=== PATIENT | female | born 1960 | race Caucasian/White ===

== ENCOUNTER 2016-10-23 00:36 | Emergency (ER) | payer MEDICARE, MEDICAID, OTHER ==
[~2016-10-23] VITALS: Ht 152.4 cm; Wt 72.7 kg
[~2016-10-23 00:36] MED LIST: FERRF325 PO; Levothyroxine Sodium PO; SYNT100T PO
[2016-10-23 00:37] VITALS: BP 127/59; PULSE 61; RESP 14; TEMP 98.2; O2SAT 100
[2016-10-23] MEDS ORDERED: SODIUM CHLOR 0.9% 1000 ML INJ 1,000 ML IV SCH (01:01)
[2016-10-23] MEDS ORDERED: SODIUM CHLORIDE 0.9% FLUSH 10 ML FLUSH IVF PRN (01:15)
[2016-10-23 01:31] LABS: AUTOMATED NEUTROPHIL # 7.7 TH/MM3 (1.8-7.7); BASOPHIL # 0.1 TH/MM3 (0-0.2); BASOPHIL % 0.7 % (0.0-2.0); EOSINOPHIL # 0.4 TH/MM3 (0-0.4); EOSINOPHIL % 4.1 % (0.0-4.0); HEMATOCRIT 35.9 % (35.0-46.0); LYMPH % 14.5 % (9.0-44.0); LYMPHOCYTE # 1.5 TH/MM3 (1.0-4.8); MEAN CELL VOLUME 72.6 FL (80.0-100.0); MEAN CORPUSCULAR HEMOGLOBIN 23.2 PG (27.0-34.0); MEAN CORPUSCULAR HGB CONC 31.9 % (32.0-36.0); MONO % 7.8 % (0.0-8.0); NEUT % 72.9 % (16.0-70.0); PLATELET COUNT 311 TH/MM3 (150-450); RED BLOOD COUNT 4.95 MIL/MM3 (4.00-5.30); RED CELL DISTRIBUTION WIDTH 16.6 % (11.6-17.2); WHITE BLOOD COUNT 10.6 TH/MM3 (4.0-11.0)
[2016-10-23] MEDS ORDERED: CELE200C PO (01:32)
[2016-10-23] MEDS ORDERED: FERR1TAB58 PO (01:32)
[2016-10-23 01:37] LABS: HEMO FLAGS AUTO DIFF
[2016-10-23 01:49] LABS: PROTHROMBIN TIME - PATIENT 11.2 SEC (9.8-11.6)
--- NOTE | 2016-10-23 01:54 | RADRPT ---
EXAM DATE/TIME: 10/23/2016 01:42 [place] COMPARISON: Report only CT ABDOMEN & PELVIS W/O CONTRAST, January 04, 2012, 20:01. INDICATIONS : Cough. MEDICAL HISTORY : Cerebral palsy. SURGICAL HISTORY : None. ENCOUNTER: Initial ACUITY: 1 day PAIN SCORE: 0/10 LOCATION: Bilateral chest FINDINGS: A single view of the chest demonstrates the lungs to be symmetrically aerated without evidence of mas s, infiltrate or effusion. The cardiomediastinal contours are unremarkable. Osseous structures are intact. Hiatal hernia noted, has been described previously. CONCLUSION: No evidence of acute cardiopulmonary disease. Large chronic hiatal hernia. Ren Ravi MD on October 23, 2016 at 1:51 Board Certified Radiologist. This report was verified electronically.
[2016-10-23 01:59] LABS: ALKALINE PHOSPHATASE 88 U/L (45-117); OVALOCYTES 1+ (NORMAL); SCAN/DIFF AUTO DIFF CONFIRMED; TOTAL BILIRUBIN ADULT 0.3 MG/DL (0.2-1.0)
--- NOTE | 2016-10-23 01:59 | PD ---
HPI Chief Complaint: General Weakness Time Seen by Provider: 00:55 Travel History International Travel<30 days: No Contact w/Intl Traveler<30days: No Traveled to known affect area: No History of Present Illness HPI 56-year-old female came to the emergency room with history of generalized weakness for past 1 week. Patient says that her daughter came to visit her today and said that her color looked cifuentes. Patient has history of anemia and has required blood transfusion in the past. He is concerned if her hemoglobin was low making her feel this way. Patient has history of cerebral palsy. She is otherwise functional. Her vital signs were stable. No history of nausea vomiting. No history of fever or chills. No history of chest pain. PFSH Past Medical History Narrative Medical List of her past medical, surgical, social and family history as reviewed from the nursing note. Cancer: No Cardiovascular Problems: No Cerebral Palsy: Yes Diminished Hearing: No Endocrine: No Gastrointestinal Disorders: No Genitourinary: No Immune Disorder: No Implanted Vascular Access Dvce: No Medical other: Yes (CHRONIC ANEMIA ) Musculoskeletal: Yes (LEFT SIDE WEAKNESS) Neurologic: Yes (CEREBRAL PALSY) Psychiatric: No Reproductive: No Respiratory: No Immunizations Current: Yes Seizures: Yes ( A CHILD) Thyroid Disease: Yes (HYPOTHYROIDISM) Tetanus Vaccination: Unknown ?: Not Menopausal: Yes : 1 Para: 1 Past Surgical History Abdominal Surgery: Yes (CHOLECYSTECTOMY) Section: Yes Cholecystectomy: Yes Eye Surgery: Yes (BL "LAZY EYE" SURGERY) Gynecologic Surgery: Yes (C SECTION) Tonsillectomy: Yes Other Surgery: Yes Social History Alcohol Use: Yes (2-3 TIMES PER YEAR) Tobacco Use: No Substance Use: No Allergies-Medications (Allergen,Severity, Reaction): Coded Allergies: Valium (Verified Allergy, Intermediate, SEIZURES, 10/23/16) Comments List of her allergies reviewed from the nursing note. Reported Meds & Prescriptions Reported Meds & Active Scripts Active Macrobid (Nitrofurantoin Monoh/Nitrofur Macro) 100 Mg Cap 100 Mg PO BID 10 Days [Levothyroxine Sodium] 112 MCG Tab 112 Mcg PO DAILY@0600 Reported Iron (Ferrous Sulfate) 50 Mg Tab 65 Mg PO QID Celebrex (Celecoxib) 200 Mg Cap 200 Mg PO BID Narrative Medication List of her home medications reviewed from the nursing note. Review of Systems Except as stated in HPI: all other systems reviewed are Neg Physical Exam Narrative GENERAL: Awake, alert, moderate distress, cerebral palsy SKIN: Focused skin assessment warm/dry. HEAD: Atraumatic. Normocephalic. EYES: Pupils equal and round. No scleral icterus. No injection or drainage. ENT: No nasal bleeding or discharge. Dry mucous membrane NECK: Trachea midline. No JVD. CARDIOVASCULAR: Regular rate and rhythm. No murmur appreciated. RESPIRATORY: No accessory muscle use. Clear to auscultation. Breath sounds equal bilaterally. GASTROINTESTINAL: Abdomen soft, non-tender, nondistended. Hepatic and splenic margins not palpable. MUSCULOSKELETAL: No obvious deformities. No clubbing. No cyanosis. No edema. NEUROLOGICAL: Awake and alert. No obvious cranial nerve deficits. Cerebral palsy. Normal speech. PSYCHIATRIC: Appropriate mood and affect; insight and judgment normal. Data Data Last Documented VS Vital Signs Date Time Temp Pulse Resp B/P Pulse Ox O2 Delivery O2 Flow Rate FiO2 10/23/16 05:38 76 16 133/60 99 10/23/16 00:37 98.2 Orders Complete Blood Count With Diff (10/23/16 01:01) Comprehensive Metabolic Panel (10/23/16 01:01) Prothrombin Time / Inr (Pt) (10/23/16 01:01) Urinalysis - C+S If Indicated (10/23/16 01:01) Type And Screen (10/23/16 01:01) Ecg Monitoring (10/23/16 01:01) Iv Access Insert/Monitor (10/23/16 01:01) Oximetry (10/23/16 01:01) Sodium Chlor 0.9% 1000 Ml Inj (Ns 1000 M (10/23/16 01:01) Sodium Chloride 0.9% Flush (Ns Flush) (10/23/16 01:15) Chest, Single Ap (10/23/16 ) Electrocardiogram (10/23/16 ) Thyroid Stimulating Hormone (10/23/16 02:04) Urine Culture (10/23/16 03:40) Nitrofurantoin Monohyd Macrocr (Macrobid (10/23/16 04:45) Labs Laboratory Tests Test 10/23/16 10/23/16 01:06 03:40 White Blood Count 10.6 TH/MM3 Red Blood Count 4.95 MIL/MM3 Hemoglobin 11.5 GM/DL Hematocrit 35.9 % Mean Corpuscular Volume 72.6 FL Mean Corpuscular Hemoglobin 23.2 PG Mean Corpuscular Hemoglobin 31.9 % Concent Red Cell Distribution Width 16.6 % Platelet Count 311 TH/MM3 Mean Platelet Volume 9.2 FL Neutrophils (%) (Auto) 72.9 % Lymphocytes (%) (Auto) 14.5 % Monocytes (%) (Auto) 7.8 % Eosinophils (%) (Auto) 4.1 % Basophils (%) (Auto) 0.7 % Neutrophils # (Auto) 7.7 TH/MM3 Lymphocytes # (Auto) 1.5 TH/MM3 Monocytes # (Auto) 0.8 TH/MM3 Eosinophils # (Auto) 0.4 TH/MM3 Basophils # (Auto) 0.1 TH/MM3 CBC Comment AUTO DIFF Differential Comment AUTO DIFF CONFIRMED Ovalocytes 1+ Prothrombin Time 11.2 SEC Prothromb Time International 1.0 RATIO Ratio Sodium Level 140 MEQ/L Potassium Level 4.3 MEQ/L Chloride Level 105 MEQ/L Carbon Dioxide Level 28.0 MEQ/L Anion Gap 7 MEQ/L Blood Urea Nitrogen 14 MG/DL Creatinine 0.45 MG/DL Estimat Glomerular Filtration 143 ML/MIN Rate Random Glucose 87 MG/DL Calcium Level 8.5 MG/DL Total Bilirubin 0.3 MG/DL Aspartate Amino Transf 28 U/L (AST/SGOT) Alanine Aminotransferase 19 U/L (ALT/SGPT) Alkaline Phosphatase 88 U/L Total Protein 7.1 GM/DL Albumin 2.8 GM/DL Thyroid Stimulating Hormone 0.040 uIU/ML 3rd Gen Blood Type A POSITIVE Antibody Screen NEGATIVE Urine Color DARK-BROWN Urine Turbidity CLOUDY Urine pH 5.5 Urine Specific [place] 1.023 Urine Protein 30 mg/dL Urine Glucose (UA) NEG mg/dL Urine Ketones 10 mg/dL Urine Occult Blood MOD Urine Nitrite POS Urine Bilirubin NEG Urine Urobilinogen LESS THAN 2.0 MG/DL Urine Leukocyte Esterase LARGE Urine RBC 57 /hpf Urine WBC /hpf Urine Squamous Epithelial 17 /hpf Cells Urine Amorphous Sediment RARE Urine Bacteria MANY /hpf Urine Mucus MANY /lpf Microscopic Urinalysis Comment CULTURE INDICATED MDM Medical Decision Making Medical Screen Exam Complete: Yes Emergency Medical Condition: Yes Medical Record Reviewed: Yes Interpretation(s) Twelve-lead EKG was reviewed by me. Normal sinus rhythm, normal axis, motion artifact, tachycardia, diffuse T-wave inversion. Heart rate of 103 bpm. Differential Diagnosis Anemia, UTI, electrolyte abnormality Narrative Course 2:02 AM CBC is back and her hemoglobin looks good. Chemistry still pending. Awaiting for UA. Patient is getting 1 L of IV fluid bolus. 3:21 AM blood test results of back and within normal limit except for her TSH which is extremely low. I've asked the patient to not take her Synthroid for a week and then have a primary care repeat her TSH. I will discharge her home. Procedures EKG Prior to Arrival: No Diagnosis Primary Impression: Hyperthyroidism Additional Impressions: Generalized weakness Dehydration Referrals: Primary Care Physician 3 days Additional Instructions: Please return to the ER if the condition worsens or any other new concerns. Otherwise follow-up with your primary care in couple of days. Do not take his Synthroid for 1 week. Have your primary care and repeat the thyroid level and should manage it from there on. Med/Other Pt SpecificInfo: Prescription(s) given Scripts Nitrofurantoin Monohydrate Macrocrystals (Macrobid)100 Mg [id number] Mg PO BID 10 Days Ref 0 Prov:Mary Daniel MD 10/23/16 Disposition: DISCHARGE HOME Condition: Stable Mary Daniel MD Oct 23, 2016 01:59
[2016-10-23 02:20] LABS: ALT (GPT) 19 U/L (10-53); ANION GAP 7 MEQ/L (5-15); AST (GOT) 28 U/L (15-37); BLOOD UREA NITROGEN 14 MG/DL (7-18); CHLORIDE 105 MEQ/L (98-107); GLOMERULAR FILTRATION RATE 143 ML/MIN (>89); POTASSIUM 4.3 MEQ/L (3.5-5.1); SODIUM (NA) 140 MEQ/L (136-145)
[2016-10-23 04:14] LABS: BACTERIA, URINE MANY /hpf; BLOOD, URINE MOD (NEG); COMMENT (UR) CULTURE INDICATED; CULTURE IF INDICATED CULTURE INDICATED; GLUCOSE,URINE NEG (NEG); KETONE, URINE 10 mg/dL (NEG); MUCUS URINE MANY /lpf (OCC); NITRITE,URINE POS (NEG); PH, URINE 5.5 (5.0-8.5); SQUAMOUS EPITHELIAL CELL URINE 17 /hpf (0-5); URINE COLOR DARK-BROWN (YELLW/STRAW)
[2016-10-23] MEDS ORDERED: MACR100C2 PO (04:43)
[2016-10-23] MEDS ORDERED: NITROFURANTOIN MONOHYD MACROCR 100 MG CAP PO ONE (04:45)
[2016-10-23 05:38] VITALS: BP 133/60
--- NOTE | 2016-10-23 07:42 | EKG ---
Date Performed: 10/23/2016 Time Performed: 01:47:47 PTAGE: 56 years EKG: BASELINE ARTIFACT PRESENT. SINUS TACHYCARDIA WITH OCCASIONAL SUPRAVENTRICULAR PREMATURE COM PLEXES POSSIBLE RIGHT VENTRICULAR CONDUCTION DELAY Nonspecific ST-T wave changes ABNORMAL ECG COMPARE D TO PRIOR ELECTROCARDIOGRAM, Possible RIGHT ventricular conduction delay is present. NO PREVIOUS TRACING DOCTOR: Yousif Feldman Interpretating Date/Time 10/23/2016 07:41:39
== END 2016-10-23 05:39 | disposition home or self-care (01) ==
LOC: NEPC 00:36
DX: E05.90 Thyrotoxicosis, unspecified without thyrotoxic crisis or storm (principal); E86.0 Dehydration; R53.1 Weakness; G80.9 Cerebral palsy, unspecified; D64.9 Anemia, unspecified; R94.31 Abnormal electrocardiogram [ECG] [EKG]
CPT/HCPCS: 71010; 80053; 81001; 84443; 85025; 85610; 86850; 86900; 86901; 87086; 93005; 96360; 99285; J7030

== ENCOUNTER 2016-11-30 17:43 | Inpatient (IN) | payer MEDICARE, MEDICAID ==
[2016-11-30] VITALS (7 sets, daily range): BP systolic 100–122; BP diastolic 61–78; PULSE 87–115; RESP 18–20; TEMP 96.7–99; O2SAT 95–98
[~2016-11-30] VITALS: Ht 152.4 cm; Wt 78.0 kg
[~2016-11-30 17:43] MED LIST changes: +CELE200C PO; +FERR1TAB58 PO; -FERRF325 PO; +MACR100C2 PO; -SYNT100T PO
[2016-11-30] MEDS ORDERED: PIPERACIL-TAZO 4.5 GM PREMIX 100 ML IV STA (18:02)
[2016-11-30] MEDS ORDERED: VANCOMYCIN INJ 1,100 MG in SODIUM CHLOR 0.9% 250 ML INJ 250 ML IV STA (18:02)
--- NOTE | 2016-11-30 18:09 | PD ---
HPI Chief Complaint: pressure ulcer buttock Time Seen by Provider: 17:53 Travel History International Travel<30 days: No Contact w/Intl Traveler<30days: No Traveled to known affect area: No History of Present Illness HPI This 56-year-old female is complaining of a pressure ulcer on her buttock. She has a history of cerebral palsy and is in a wheelchair. She lives by herself in a handicap enabled house. She normally sleeps but it has been broken. She has had 2 stay in her other wheelchair and fell doing this has developed redness and pain in the buttock. She had a previous pressure ulcer about 2 years ago. She also has a history of hypothyroidism. She said she had some chills last night. PFSH Past Medical History Cancer: No Cardiovascular Problems: No Cerebral Palsy: Yes Diminished Hearing: No Endocrine: No Gastrointestinal Disorders: No Genitourinary: No Immune Disorder: No Implanted Vascular Access Dvce: No Musculoskeletal: Yes (LEFT SIDE WEAKNESS) Neurologic: Yes (CEREBRAL PALSY) Psychiatric: No Reproductive: No Respiratory: No Immunizations Current: Yes Seizures: Yes ( A CHILD) Thyroid Disease: Yes (HYPOTHYROIDISM) Menopausal: Yes : 1 Para: 1 Past Surgical History Abdominal Surgery: Yes (CHOLECYSTECTOMY) Section: Yes Cholecystectomy: Yes Eye Surgery: Yes (BL "LAZY EYE" SURGERY) Gynecologic Surgery: Yes (C SECTION) Tonsillectomy: Yes Other Surgery: Yes Social History Alcohol Use: Yes (2-3 TIMES PER YEAR) Tobacco Use: No Substance Use: No Allergies-Medications (Allergen,Severity, Reaction): Coded Allergies: Valium (Verified Adverse Reaction, Severe, Seizures , 11/30/16) Reported Meds & Prescriptions Reported Meds & Active Scripts Active Reported Iron (Ferrous Sulfate) 90 Mg Tab 130 Mg PO DAILY Celebrex (Celecoxib) 200 Mg Cap 200 Mg PO BID PRN Synthroid (Levothyroxine Sodium) 75 Mcg Tab 75 Mcg PO DAILY Review of Systems General / Constitutional: Positive: Chills Eyes: No: Diploplia HENT: No: Headaches, Sore Throat Cardiovascular: No: Chest Pain or Discomfort, Palpitations Respiratory: No: Cough, Shortness of Breath Gastrointestinal: No: Vomiting, Diarrhea Genitourinary: No: Urgency Skin: Positive Rash Neurologic: Positive: Weakness, Focal Abnormalities Hematologic/Lymphatic: No: Easy Bruising Physical Exam Narrative GENERAL: Well-developed female. Hygiene is poor. There is stool over the buttocks. There were some cockroaches noted in her bedding. SKIN: Focused skin assessment warm/dry. There is erythema of the right buttock with ulceration of the skin. There is stool in the gluteal cleft. There is also an area of erythema on the left buttock HEAD: Atraumatic. Normocephalic. EYES: Pupils equal and round. No scleral icterus. No injection or drainage. ENT: No nasal bleeding or discharge. Mucous membranes pink and moist. NECK: Trachea midline. No JVD. CARDIOVASCULAR: Regular rate and rhythm. No murmur appreciated. RESPIRATORY: No accessory muscle use. Clear to auscultation. Breath sounds equal bilaterally. GASTROINTESTINAL: Abdomen soft, non-tender, nondistended. Hepatic and splenic margins not palpable. MUSCULOSKELETAL: No obvious deformities. No clubbing. No cyanosis. No edema. NEUROLOGICAL: Awake and alert. No obvious cranial nerve deficits. There is left -sided weakness PSYCHIATRIC: Appropriate mood and affect; insight and judgment normal. Data Data Last Documented VS Vital Signs Date Time Temp Pulse Resp B/P Pulse Ox O2 Delivery O2 Flow Rate FiO2 11/30/16 19:23 114 20 118/73 98 11/30/16 18:50 Room Air 11/30/16 18:15 99.0 Orders Complete Blood Count With Diff (11/30/16 18:02) Comprehensive Metabolic Panel (11/30/16 18:02) Prothrombin Time / Inr (Pt) (11/30/16 18:02) Act Partial Throm Time (Ptt) (11/30/16 18:02) Lactic Acid Sepsis Protocol (11/30/16 18:02) Urinalysis - C+S If Indicated (11/30/16 18:02) Blood Culture (11/30/16 18:02) Wound Culture And Gram Stain (11/30/16 18:02) Blood Glucose (11/30/16 18:02) Ecg Monitoring (11/30/16 18:02) Iv Access Insert/Monitor (11/30/16 18:02) Oximetry (11/30/16 18:02) Piperacil-Tazo 4.5 Gm Premix (Zosyn 4.5 (11/30/16 18:02) Vancomycin Inj (Vancomycin Inj) (11/30/16 18:02) Sodium Chlor 0.9% 1000 Ml Inj (Ns 1000 M (11/30/16 19:00) Thyroid Stimulating Hormone (11/30/16 18:40) Labs Laboratory Tests Test 11/30/16 18:40 White Blood Count 10.8 TH/MM3 Red Blood Count 4.59 MIL/MM3 Hemoglobin 10.1 GM/DL Hematocrit 31.4 % Mean Corpuscular Volume 68.5 FL Mean Corpuscular Hemoglobin 22.0 PG Mean Corpuscular Hemoglobin 32.0 % Concent Red Cell Distribution Width 15.2 % Platelet Count 460 TH/MM3 Mean Platelet Volume 7.8 FL Neutrophils (%) (Auto) 74.9 % Lymphocytes (%) (Auto) 14.8 % Monocytes (%) (Auto) 5.9 % Eosinophils (%) (Auto) 4.0 % Basophils (%) (Auto) 0.4 % Neutrophils # (Auto) 8.1 TH/MM3 Lymphocytes # (Auto) 1.6 TH/MM3 Monocytes # (Auto) 0.6 TH/MM3 Eosinophils # (Auto) 0.4 TH/MM3 Basophils # (Auto) 0.0 TH/MM3 CBC Comment AUTO DIFF Differential Comment AUTO DIFF CONFIRMED Platelet Estimate HIGH Prothrombin Time 11.0 SEC Prothromb Time International 1.0 RATIO Ratio Activated Partial 29.0 SEC Thromboplast Time Sodium Level 142 MEQ/L Potassium Level 3.8 MEQ/L Chloride Level 109 MEQ/L Carbon Dioxide Level 27.4 MEQ/L Anion Gap 6 MEQ/L Blood Urea Nitrogen 13 MG/DL Creatinine 0.44 MG/DL Estimat Glomerular Filtration 147 ML/MIN Rate Random Glucose 111 MG/DL Lactic Acid Level 0.9 mmol/L Calcium Level 8.2 MG/DL Total Bilirubin 0.2 MG/DL Aspartate Amino Transf 10 U/L (AST/SGOT) Alanine Aminotransferase 13 U/L (ALT/SGPT) Alkaline Phosphatase 78 U/L Total Protein 7.1 GM/DL Albumin 2.4 GM/DL Thyroid Stimulating Hormone 6.780 uIU/ML 3rd Gen [facility] Medical Decision Making Medical Screen Exam Complete: Yes Emergency Medical Condition: Yes Medical Record Reviewed: Yes Differential Diagnosis Differential includes cellulitis, pressure sore, decubitus ulcer Narrative Course Patient does have a significant area of cellulitis. She is not able to care for this area and I don't think she is a candidate for outpatient treatment. She has not been able to keep this area clean and fact there is stool around the area of cellulitis. Diagnosis Primary Impression: Cellulitis of right buttock Additional Impression: Cellulitis of left buttock Dev Salgado MD Nov 30, 2016 18:09
[2016-11-30] MEDS ORDERED: LEVO.075 PO (18:18)
[2016-11-30] MEDS ORDERED: IRON18TA PO (18:18)
[2016-11-30] MEDS ORDERED: CELE200C PO (18:18)
[2016-11-30 18:47] LABS: AUTOMATED NEUTROPHIL # 8.1 TH/MM3 (1.8-7.7); BASOPHIL % 0.4 % (0.0-2.0); EOSINOPHIL # 0.4 TH/MM3 (0-0.4); HEMATOCRIT 31.4 % (35.0-46.0); LYMPH % 14.8 % (9.0-44.0); LYMPHOCYTE # 1.6 TH/MM3 (1.0-4.8); MEAN CELL VOLUME 68.5 FL (80.0-100.0); MONO % 5.9 % (0.0-8.0); NEUT % 74.9 % (16.0-70.0); PLATELET COUNT 460 TH/MM3 (150-450); RED BLOOD COUNT 4.59 MIL/MM3 (4.00-5.30); RED CELL DISTRIBUTION WIDTH 15.2 % (11.6-17.2); WHITE BLOOD COUNT 10.8 TH/MM3 (4.0-11.0)
[2016-11-30 18:55] LABS: CHLORIDE 109 MEQ/L (98-107); HEMO FLAGS AUTO DIFF; POTASSIUM 3.8 MEQ/L (3.5-5.1); SODIUM (NA) 142 MEQ/L (136-145)
[2016-11-30 19:00] LABS: ANION GAP 6 MEQ/L (5-15); BICARBONATE 27.4 MEQ/L (21.0-32.0); BLOOD UREA NITROGEN 13 MG/DL (7-18)
[2016-11-30] MEDS ORDERED: SODIUM CHLOR 0.9% 1000 ML INJ 1,000 ML IV ONE (19:00)
[2016-11-30 19:03] LABS: ALT (GPT) 13 U/L (10-53); AST (GOT) 10 U/L (15-37); GLOMERULAR FILTRATION RATE 147 ML/MIN (>89)
[2016-11-30 19:04] LABS: TOTAL BILIRUBIN ADULT 0.2 MG/DL (0.2-1.0)
[2016-11-30 19:06] LABS: ALKALINE PHOSPHATASE 78 U/L (45-117)
[2016-11-30 19:33] LABS: PLATELET ESTIMATE SMEAR HIGH (NORMAL); SCAN/DIFF AUTO DIFF CONFIRMED
[2016-11-30] MEDS ORDERED: NALOXONE HCL 0.4 MG/ML AMP IV PRN (20:15)
[2016-11-30] MEDS ORDERED: MORPHINE SULFATE 4 MG/ML INJ IV PUSH PRN ×2 (20:15)
[2016-11-30] MEDS ORDERED: SODIUM CHLORIDE 0.9% FLUSH 10 ML FLUSH IV FLUSH PRN (20:15)
[2016-11-30] MEDS ORDERED: SENNOSIDES 8.6 MG TAB PO PRN (20:15)
[2016-11-30] MEDS ORDERED: MAGNESIUM HYDROXIDE SUSP 30 ML CUP PO PRN (20:15)
[2016-11-30] MEDS ORDERED: BISACODYL 10 MG SUPP RECTAL PRN (20:15)
[2016-11-30] MEDS: DOCUSATE SODIUM 50 MG/SENNA 8.6 MG TAB PO SCH (21:00)
[2016-11-30] MEDS: SODIUM CHLORIDE 0.9% FLUSH 10 ML FLUSH IV FLUSH SCH (21:00)
[2016-11-30] MEDS: HEPARIN SODIUM - SQ 10,000 UNITS/ML VIAL SQ SCH (21:00)
[2016-12-01] VITALS (7 sets, daily range): BP systolic 95–140; BP diastolic 60–76; PULSE 81–97; RESP 18–20; TEMP 96.1–98.4; O2SAT 90–99
[2016-12-01] MEDS: ACETAMINOPHEN 325 MG TAB PO PRN ×3 (01:01→20:35)
[2016-12-01] MEDS: HEPARIN SODIUM - SQ 10,000 UNITS/ML VIAL SQ SCH ×3 (05:00→20:38)
[2016-12-01] MEDS: LEVOTHYROXINE SODIUM 75 MCG TAB PO SCH (06:01)
[2016-12-01 06:27] LABS: AUTOMATED NEUTROPHIL # 6.1 TH/MM3 (1.8-7.7); BASOPHIL # 0.1 TH/MM3 (0-0.2); BASOPHIL % 1.4 % (0.0-2.0); EOSINOPHIL # 0.4 TH/MM3 (0-0.4); EOSINOPHIL % 4.9 % (0.0-4.0); HEMATOCRIT 29.5 % (35.0-46.0); LYMPH % 19.5 % (9.0-44.0); LYMPHOCYTE # 1.7 TH/MM3 (1.0-4.8); MEAN CELL VOLUME 70.5 FL (80.0-100.0); MEAN CORPUSCULAR HEMOGLOBIN 21.8 PG (27.0-34.0); MEAN CORPUSCULAR HGB CONC 30.9 % (32.0-36.0); MONO % 6.6 % (0.0-8.0); NEUT % 67.6 % (16.0-70.0); PLATELET COUNT 386 TH/MM3 (150-450); RED BLOOD COUNT 4.18 MIL/MM3 (4.00-5.30); RED CELL DISTRIBUTION WIDTH 15.9 % (11.6-17.2); WHITE BLOOD COUNT 8.9 TH/MM3 (4.0-11.0)
[2016-12-01 06:36] LABS: POTASSIUM 4.1 MEQ/L (3.5-5.1)
[2016-12-01 06:39] LABS: HEMO FLAGS AUTO DIFF
[2016-12-01 06:41] LABS: BICARBONATE 26.3 MEQ/L (21.0-32.0)
[2016-12-01 08:37] LABS: OVALOCYTES 1+ (NORMAL)
[2016-12-01 08:38] LABS: PLATELET ESTIMATE SMEAR NORMAL (NORMAL); PLATELET MORPHOLOGY NORMAL (NORMAL); SCAN/DIFF AUTO DIFF CONFIRMED
[2016-12-01] MEDS: DOCUSATE SODIUM 50 MG/SENNA 8.6 MG TAB PO SCH ×2 (09:00→20:38)
[2016-12-01] MEDS: SODIUM CHLORIDE 0.9% FLUSH 10 ML FLUSH IV FLUSH SCH ×2 (09:00→20:36)
--- NOTE | 2016-12-01 13:47 | HHI.HP ---
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 She also reports 2 day history of subjective chills. Denies any chest pain, shortness of breath. Denies any cough, sore throat, dysuria. Patient reports that she has 3 wheelchairs at home, however the other 2 have not worked recently, and she is stuck in a wheelchair which does not recline. Since this began 6 weeks ago, her bilateral buttock pain started. She is seeing her primary care doctor, has started Desitin cream, without improvement. Review of Systems Performed and negative except for history of present illness and past medical history. Past Family Social History Past Medical History Cerebral palsy. Patient is limited to wheelchair. Residual left-sided weakness History of seizures as a child. None since childhood. History of chronic anemia on iron supplementation History of transaminitis Hypothyroidism on replacement History of urinary tract infection Past Surgical History Colonoscopy Cholecystectomy Bilateral eye surgery due to lazy eye History of 1 Tonsillectomy Reported Medications Reported Meds & Active Scripts Active Reported Iron (Ferrous Sulfate) 90 Mg Tab 130 Mg PO DAILY Celebrex (Celecoxib) 200 Mg Cap 200 Mg PO BID PRN Synthroid (Levothyroxine Sodium) 75 Mcg Tab 75 Mcg PO DAILY Allergies: Coded Allergies: Valium (Verified Adverse Reaction, Severe, Seizures , 11/30/16) Family History Mother passed way from breast cancer. Father from heart condition, although unknown when heart condition started Social History Nonsmoker. Patient drinks occasionally, less than one time per month. Denies any illicit drugs. Physical Exam Vital Signs Vital Signs Date Time Temp Pulse Resp B/P Pulse Ox O2 Delivery O2 Flow Rate FiO2 12/01/16 12:18 18 12/01/16 08:20 97 21 12/01/16 08:00 98.4 81 18 105/66 97 12/01/16 04:00 96.1 86 20 113/60 99 12/01/16 00:00 97.0 88 18 114/66 90 11/30/16 22:24 97 21 11/30/16 21:35 96.7 87 20 120/68 97 11/30/16 21:06 97.6 11/30/16 20:49 89 18 100/61 98 11/30/16 19:23 114 20 118/73 98 11/30/16 18:50 97 Room Air 11/30/16 18:15 99.0 115 18 118/73 95 Physical Exam GENERAL: Thin 56-year-old female lying in bed. She is alert and oriented 3. SKIN: Cool and dry. Bilateral buttocks with erythema. Right right buttock 5 by a 3 stage II pressure ulcer. HEAD: Atraumatic. Normocephalic. No temporal or scalp tenderness. EYES: Pupils equal round and reactive. Extraocular motions intact. No scleral icterus. No injection or drainage. ENT: Nose without bleeding, purulent drainage or septal hematoma. Throat without erythema, tonsillar hypertrophy or exudate. Uvula midline. Airway patent. NECK: Trachea midline. No JVD. Supple, nontender, no meningeal signs. CARDIOVASCULAR: Regular rate and rhythm without murmurs, gallops, or rubs. RESPIRATORY: Clear to auscultation. Breath sounds equal bilaterally. No wheezes , rales, or rhonchi. GASTROINTESTINAL: Abdomen soft, non-tender, nondistended. No hepato-splenomegaly , or palpable masses. No guarding. MUSCULOSKELETAL: Extremities without clubbing, cyanosis, or edema. No joint tenderness, effusion, or edema noted. No calf tenderness. Negative Homans sign bilaterally. Patient with generalized weakness, left greater than right. NEUROLOGICAL: Awake and alert. Cranial nerves II through XII intact. Motor and sensory grossly within normal limits. Normal speech. Laboratory Laboratory Tests Test 11/30/16 12/01/16 18:40 05:50 White Blood Count 10.8 8.9 Red Blood Count 4.59 4.18 Hemoglobin 10.1 9.1 Hematocrit 31.4 29.5 Mean Corpuscular Volume 68.5 70.5 Mean Corpuscular Hemoglobin 22.0 21.8 Mean Corpuscular Hemoglobin 32.0 30.9 Concent Red Cell Distribution Width 15.2 15.9 Platelet Count 460 386 Mean Platelet Volume 7.8 8.2 Neutrophils (%) (Auto) 74.9 67.6 Lymphocytes (%) (Auto) 14.8 19.5 Monocytes (%) (Auto) 5.9 6.6 Eosinophils (%) (Auto) 4.0 4.9 Basophils (%) (Auto) 0.4 1.4 Neutrophils # (Auto) 8.1 6.1 Lymphocytes # (Auto) 1.6 1.7 Monocytes # (Auto) 0.6 0.6 Eosinophils # (Auto) 0.4 0.4 Basophils # (Auto) 0.0 0.1 CBC Comment AUTO DIFF AUTO DIFF Differential Comment AUTO DIFF AUTO DIFF CONFIRMED CONFIRMED Platelet Estimate HIGH NORMAL Prothrombin Time 11.0 Prothromb Time International 1.0 Ratio Activated Partial 29.0 Thromboplast Time Sodium Level 142 144 Potassium Level 3.8 4.1 Chloride Level 109 111 Carbon Dioxide Level 27.4 26.3 Anion Gap 6 7 Blood Urea Nitrogen 13 11 Creatinine 0.44 0.39 Estimat Glomerular Filtration 147 169 Rate Random Glucose 111 73 Lactic Acid Level 0.9 Calcium Level 8.2 7.9 Total Bilirubin 0.2 Aspartate Amino Transf 10 (AST/SGOT) Alanine Aminotransferase 13 (ALT/SGPT) Alkaline Phosphatase 78 Total Protein 7.1 Albumin 2.4 Thyroid Stimulating Hormone 6.780 3rd Gen Platelet Morphology Comment NORMAL Ovalocytes 1+ Date/Time Procedure Status Source Growth 11/30/16 19:05 Gram Stain - Final Resulted Wound Buttock 11/30/16 19:05 Wound Culture - Preliminary Resulted Group A Beta Strep Gram Negative Adis 11/30/16 18:40 Aerobic Blood Culture - Preliminary Resulted Blood Peripheral NO GROWTH IN 1 DAY 11/30/16 18:40 Anaerobic Blood Culture - Preliminary Resulted Blood Peripheral NO GROWTH IN 1 DAY Result Diagram: 12/01/16 0550 12/01/16 0550 Assessment and Plan Assessment and Plan //Stage II decubitus ulcer right buttock, with surrounding erythema. //Possible sepsis on admission. Tachycardia, tachypnea. No white count. Subjective chills at home. Affected decubitus ulcer right buttock -No urinary symptoms. No respiratory symptoms. -Wound culture with group A strep and gram-negative rods. Speciation pending 6/6 Start cefazolin. Discussed with infectious disease. Await culture. Wound care nursing consult. -Physical therapy consult pending. //Hypothyroidism. Chronic. TSH 6. This is in the acute setting. Continue home Synthroid. We'll need to follow-up with primary care to check this as an outpatient. //Chronic pain. Avoid home and said. Patient like to continue acetaminophen. //Protein calorie malnutrition. enlive 3 times a day ordered. //Anemia. Chronic.. Continue home iron with stool softener //Prophylaxis. SCDs, and subcutaneous Heparin. Discussed Condition With Patient, nurse, physical therapist. Physician Certification 2 Midnight Certification Type: Admission for Inpatient Services Order for Inpatient Services The services are ordered in accordance with Medicare regulations or non- Medicare payer requirements, as applicable. In the case of services not specified as inpatient-only, they are appropriately provided as inpatient services in accordance with the 2-midnight benchmark. Estimated LOS (days): 2 days is the estimated time the patient will need to remain in the hospital, assuming treatment plan goals are met and no additional complications. Post-Hospital Plan: Not yet determined Herbie Tamez MD Dec 01, 2016 13:47
[2016-12-01] MEDS ORDERED: CEFEPIME INJ 2,000 MG in SODIUM CHLORIDE 0.9% INJ 100 ML IV SCH (14:00)
[2016-12-01 14:21] LABS: BLOOD, URINE TRACE (NEG); GLUCOSE,URINE NEG (NEG); KETONE, URINE NEG (NEG); NITRITE,URINE POS (NEG)
[2016-12-01 14:31] LABS: URINE COLOR STRAW (YELLW/STRAW)
[2016-12-01 14:34] LABS: BACTERIA, URINE FEW /hpf; COMMENT (UR) CULTURE INDICATED; CULTURE IF INDICATED CULTURE INDICATED
--- NOTE | 2016-12-01 16:59 | MB ---
cc: GORDON HAMMOND MD DATE OF CONSULTATION 12/01/[address] Tamez REASON FOR CONSULTATION Pressure ulceration of the right buttock. Infection. HISTORY OF PRESENT ILLNESS This is a 56-year-old white female who presented to the emergency department yesterday evening with a pressure ulcer on her buttock. The patient has cerebral palsy and she gets around with a wheelchair. She noted that she was having some discomfort at the buttock for about two weeks when she noticed that she had a tiny bruise at that area. Subsequently, she was taking care of it with cream and then she had a visit from the home care nurse who noted redness at the buttock. After developing pain at the right buttock, she states that she could no longer tolerate it and came to the emergency department for evaluation. She stated she had some chills the night before presenting. She also complains of urinary urgency as well. The patient has an elevated heart rate of 114 in the emergency department. She was admitted to the hospital and started on IV antibiotics. Culture was taken from the buttocks ulceration. Cultures so far have group A beta strep and gram-negative iraida. The patient is awake and alert and in no acute distress. She is laying in bed and is comfortable watching television. She is afebrile. White blood cell count is normal. She states that she feels fatigued. PAST MEDICAL HISTORY 1. Anemia. 2. Cerebral palsy 3. Hypothyroidism. 4. Cholecystectomy 5. Colonoscopy 6. Bilateral eye surgery for lazy eye. 7. Caesarean section ALLERGIES VALIUM MEDICATIONS 1. Cephazolin 2. Colace 3. Synthroid. 4. Daisha-Colace. 5. Tylenol. 6. The patient received the piperacillin and vancomycin dose on 11/30. SOCIAL HISTORY Positive alcohol occasional. No tobacco, no illicit drugs. FAMILY HISTORY Noncontributory REVIEW OF SYSTEMS Negative on 10-point review except for chills, urinary urgency and fatigue. PHYSICAL EXAMINATION GENERAL: This is a pleasant well-developed female who is in no acute distress. She is awake, alert and oriented. VITAL SIGNS: Temperature of 98.4, BP 105/66, respirations 18, heart rate 81. HEENT: Head atraumatic. Extraocular movements grossly intact, pupils reactive to light without icterus. Oropharynx no visible lesions. Moist mucosa. NECK: Supple. No adenopathy. LUNGS: Clear breath sounds HEART: Regular S1-S2. No murmurs. No rubs. No gallops. ABDOMEN: Bowel sounds present, soft, no tenderness. No masses palpable. BACK: The area reveals erythema of the entire skin of the buttock. There is an ulceration on the right buttock, lateral posterior area approximately somewhat larger than a quarter coin. It is approximately stage II and has a foul odor but no necrosis. RECTAL: Not performed. EXTREMITIES: No clubbing or cyanosis. Trace edema. NEUROLOGIC: Decreased mobility of the left upper extremity. PSYCHIATRIC: The patient is calm and cooperative. LABORATORY DATA WBC 8.9, platelets 386, hemoglobin 9.1. Creatinine 0.39, BUN 11, sodium 144, AST 10, ALT 13. IMPRESSION Stage III decubitus ulceration of the right buttock infected with bacteria. Cultures to date showing group A strep and gram-negative iraida. RECOMMENDATION 1. Continue cefazolin 2. Monitor the gram-negative iraida for identity 3. Monitor blood cultures. If the gram-negative iraida is sensitive to oral antibiotic, I recommend switching the patient to oral antibiotics to continue treatment for this infection. If the bacteria is amenable to oral antibiotics, I would consider discharging her on oral antibiotic for a 10-day to 14-day course of treatment. Thank you for this consultation. I will follow the cultures and make further recommendations if necessary. Gordon Hammond MD FD/ /1:56 PM /4:46 PM TARAS
[2016-12-01] MEDS: NYSTATIN 100,000 UNIT/GM CREAM 15 GM TOPICAL SCH (20:38)
[2016-12-01] MEDS: DOCUSATE SODIUM 100 MG CAP PO SCH (20:38)
[2016-12-01] MEDS ORDERED: ACETAMINOPHEN 500 MG CPLT PO ONE (22:00)
[2016-12-01 22:20] LABS: TRANSFERRIN IRON PROFILE 156 MG/DL (200-360)
[2016-12-01 22:22] LABS: FERRITIN 17 NG/ML (8-252)
[2016-12-02] VITALS (7 sets, daily range): BP systolic 95–135; BP diastolic 59–75; PULSE 79–92; RESP 18–20; TEMP 96–98.9; O2SAT 96–98
[2016-12-02] MEDS: ACETAMINOPHEN 325 MG TAB PO PRN ×3 (03:46→22:51)
[2016-12-02] MEDS: HEPARIN SODIUM - SQ 10,000 UNITS/ML VIAL SQ SCH ×5 (05:00→21:50)
[2016-12-02] MEDS: LEVOTHYROXINE SODIUM 75 MCG TAB PO SCH (05:40)
[2016-12-02 08:37] LABS: AUTOMATED NEUTROPHIL # 5.9 TH/MM3 (1.8-7.7); BASOPHIL # 0.1 TH/MM3 (0-0.2); BASOPHIL % 0.6 % (0.0-2.0); EOSINOPHIL # 0.5 TH/MM3 (0-0.4); EOSINOPHIL % 5.1 % (0.0-4.0); HEMATOCRIT 30.4 % (35.0-46.0); LYMPH % 20.9 % (9.0-44.0); LYMPHOCYTE # 1.9 TH/MM3 (1.0-4.8); MEAN CELL VOLUME 70.2 FL (80.0-100.0); MEAN CORPUSCULAR HEMOGLOBIN 22.5 PG (27.0-34.0); MEAN CORPUSCULAR HGB CONC 32.1 % (32.0-36.0); MONO % 5.8 % (0.0-8.0); NEUT % 67.6 % (16.0-70.0); PLATELET COUNT 413 TH/MM3 (150-450); RED BLOOD COUNT 4.33 MIL/MM3 (4.00-5.30); RED CELL DISTRIBUTION WIDTH 16.1 % (11.6-17.2); WHITE BLOOD COUNT 8.9 TH/MM3 (4.0-11.0)
[2016-12-02 08:39] LABS: HEMO FLAGS AUTO DIFF
[2016-12-02 08:44] LABS: POTASSIUM 4.1 MEQ/L (3.5-5.1)
[2016-12-02] MEDS: DOCUSATE SODIUM 50 MG/SENNA 8.6 MG TAB PO SCH ×2 (09:00→21:00)
[2016-12-02] MEDS ORDERED: FERROUS SULFATE PO SCH (09:00)
[2016-12-02] MEDS: DOCUSATE SODIUM 100 MG CAP PO SCH ×3 (09:00→21:51)
[2016-12-02 09:05] LABS: KERATOCYTES OCC (NORMAL)
[2016-12-02 09:06] LABS: OVALOCYTES 1+ (NORMAL); SCAN/DIFF AUTO DIFF CONFIRMED
[2016-12-02] MEDS: SODIUM CHLORIDE 0.9% FLUSH 10 ML FLUSH IV FLUSH SCH ×2 (09:29→12:49)
[2016-12-02] MEDS: PANTOPRAZOLE SOD 20 MG DELAYED RELEASE TAB PO SCH (09:30)
[2016-12-02] MEDS: NYSTATIN 100,000 UNIT/GM CREAM 15 GM TOPICAL SCH ×2 (09:30→21:51)
--- NOTE | 2016-12-02 14:42 | HHI.PR ---
Subjective Remarks Patient says she is feeling all right. Denies any chest pain or shortness of breath. She reports extreme pain at site of posterior buttock ulcer with physical therapy. Improved upon resting. Objective Vital Signs Date Time Temp Pulse Resp B/P Pulse Ox O2 Delivery O2 Flow Rate FiO2 12/02/16 12:00 97.8 79 20 95/68 97 12/02/16 08:10 83 12/02/16 08:00 98.9 79 20 102/69 96 12/02/16 05:08 18 12/02/16 04:00 96.0 92 20 99/59 96 12/02/16 00:00 97.3 90 20 112/70 97 12/01/16 23:23 18 12/01/16 20:00 91 12/01/16 20:00 98.0 97 20 95/67 96 12/01/16 16:00 98.3 88 20 140/76 97 I/O 12/01/16 12/01/16 12/01/16 12/02/16 12/02/16 12/02/16 07:00 15:00 23:00 07:00 15:00 23:00 Intake Total 0 ml 1125 ml 340 ml 220 ml Output Total 300 ml 300 ml Balance 0 ml 825 ml 340 ml -80 ml Intake Oral 1125 ml 240 ml 120 ml IV Total 0 ml 100 ml 100 ml Output Urine Total 300 ml 300 ml # Voids 4 2 1 # Bowel Movements 0 0 0 Result Diagram: 12/02/16 0800 12/02/16 0800 Objective Remarks GENERAL: Patient sitting up in bed. Appears comfortable. Alert and oriented 3. SKIN: Warm and dry. Bilateral buttocks with erythema much improved. Right buttock ulcer with with improvement in surrounding erythema. HEAD: Normocephalic. EYES: No scleral icterus. No injection or drainage. NECK: Supple, trachea midline. No JVD. CARDIOVASCULAR: Regular rate and rhythm without murmurs, gallops, or rubs. RESPIRATORY: Breath sounds equal bilaterally. No accessory muscle use. GASTROINTESTINAL: Abdomen soft, non-tender, nondistended. MUSCULOSKELETAL: No cyanosis, or edema. BACK: Nontender without obvious deformity. No CVA tenderness. A/P Assessment and Plan =====12/02/16======== Continues with slow improvement. Sensitivities from Proteus pending. Continue antibiotics. -Discussed with case management. Trying to obtain appropriate recliner, air bed. /Stage II decubitus ulcer right buttock, with surrounding erythema. //Possible sepsis on admission. Tachycardia, tachypnea. No white count. Subjective chills at home. Affected decubitus ulcer right buttock -No urinary symptoms. No respiratory symptoms. -Wound culture with group A strep and gram-negative rods. Speciation pending 12/01 Start cefazolin. Discussed with infectious disease. Await culture. Wound care nursing consult. -Physical therapy following. Appreciate assistance. //Hypothyroidism. Chronic. TSH 6. This is in the acute setting. Continue home Synthroid. We'll need to follow-up with primary care to check this as an outpatient. //Chronic pain. Avoid home nsaid. continue acetaminophen. //Protein calorie malnutrition. enlive 3 times a day. //Anemia. Chronic.. Continue home iron with stool softener. //Chronic constipation. Last BM 12/01. She reports weekly BMs. //Prophylaxis. SCDs, and subcutaneous Heparin. Discharge Planning -Patient will need a special bed at home -Patient would benefit from cushion to prevent decubitus ulcer. Herbie Tamez MD Dec 02, 2016 14:42
[2016-12-02] MEDS ORDERED: HOSP BED1 (14:47)
--- NOTE | 2016-12-02 16:31 | HHI.IDPN ---
Note Infectious Disease Note Patient notes she has pain 8/10 at the r. buttock area of wound/ulcer. Afebrile. Wound culture has proteus and Group A beta strep. PAST MEDICAL HISTORY 1. Anemia. 2. Cerebral palsy 3. Hypothyroidism. 4. Cholecystectomy 5. Colonoscopy 6. Bilateral eye surgery for lazy eye. 7. Caesarean section ALLERGIES VALIUM ANTIBIOTICS: 1. Cefazolin OBJECTIVE: Vital Signs Date Time Temp Pulse Resp B/P Pulse Ox O2 Delivery O2 Flow Rate FiO2 12/02/16 14:35 18 12/02/16 12:00 97.8 79 20 95/68 97 12/02/16 08:10 83 12/02/16 08:00 98.9 79 20 102/69 96 12/02/16 04:00 96.0 92 20 99/59 96 12/02/16 00:00 97.3 90 20 112/70 97 12/01/16 23:23 18 12/01/16 20:00 91 12/01/16 20:00 98.0 97 20 95/67 96 12/01/16 12/01/16 12/02/16 15:00 23:00 07:00 Intake Total 1125 ml 340 ml 220 ml Output Total 300 ml 300 ml Balance 825 ml 340 ml -80 ml Intake Oral 1125 ml 240 ml 120 ml IV Total 100 ml 100 ml Output Urine Total 300 ml 300 ml # Voids 4 2 1 # Bowel Movements 0 0 0 Laboratory Tests Test 11/30/16 12/01/16 12/02/16 18:40 05:50 08:00 White Blood Count 10.8 TH/MM3 8.9 TH/MM3 8.9 TH/MM3 Red Blood Count 4.59 MIL/MM3 4.18 MIL/MM3 4.33 MIL/MM3 Hemoglobin 10.1 GM/DL 9.1 GM/DL 9.8 GM/DL Hematocrit 31.4 % 29.5 % 30.4 % Mean Corpuscular Volume 68.5 FL 70.5 FL 70.2 FL Mean Corpuscular Hemoglobin 22.0 PG 21.8 PG 22.5 PG Mean Corpuscular Hemoglobin 32.0 % 30.9 % 32.1 % Concent Red Cell Distribution Width 15.2 % 15.9 % 16.1 % Platelet Count 460 TH/MM3 386 TH/MM3 413 TH/MM3 Mean Platelet Volume 7.8 FL 8.2 FL 8.0 FL Neutrophils (%) (Auto) 74.9 % 67.6 % 67.6 % Lymphocytes (%) (Auto) 14.8 % 19.5 % 20.9 % Monocytes (%) (Auto) 5.9 % 6.6 % 5.8 % Eosinophils (%) (Auto) 4.0 % 4.9 % 5.1 % Basophils (%) (Auto) 0.4 % 1.4 % 0.6 % Neutrophils # (Auto) 8.1 TH/MM3 6.1 TH/MM3 5.9 TH/MM3 Lymphocytes # (Auto) 1.6 TH/MM3 1.7 TH/MM3 1.9 TH/MM3 Monocytes # (Auto) 0.6 TH/MM3 0.6 TH/MM3 0.5 TH/MM3 Eosinophils # (Auto) 0.4 TH/MM3 0.4 TH/MM3 0.5 TH/MM3 Basophils # (Auto) 0.0 TH/MM3 0.1 TH/MM3 0.1 TH/MM3 CBC Comment AUTO DIFF AUTO DIFF AUTO DIFF Differential Comment AUTO DIFF AUTO DIFF AUTO DIFF CONFIRMED CONFIRMED CONFIRMED Platelet Estimate HIGH NORMAL Platelet Morphology Comment NORMAL Ovalocytes 1+ 1+ Keratocytes OCC Laboratory Tests Test 11/30/16 12/01/16 12/01/16 12/02/16 18:40 05:50 20:57 08:00 Sodium Level 142 MEQ/L 144 MEQ/L 143 MEQ/L Potassium Level 3.8 MEQ/L 4.1 MEQ/L 4.1 MEQ/L Chloride Level 109 MEQ/L 111 MEQ/L 108 MEQ/L Carbon Dioxide Level 27.4 MEQ/L 26.3 MEQ/L 29.0 MEQ/L Anion Gap 6 MEQ/L 7 MEQ/L 6 MEQ/L Blood Urea Nitrogen 13 MG/DL 11 MG/DL 10 MG/DL Creatinine 0.44 MG/DL 0.39 MG/DL 0.41 MG/DL Estimat Glomerular Filtration 147 ML/MIN 169 ML/MIN 159 ML/MIN Rate Random Glucose 111 MG/DL 73 MG/DL 85 MG/DL Lactic Acid Level 0.9 mmol/L Calcium Level 8.2 MG/DL 7.9 MG/DL 7.7 MG/DL Total Bilirubin 0.2 MG/DL Aspartate Amino Transf 10 U/L (AST/SGOT) Alanine Aminotransferase 13 U/L (ALT/SGPT) Alkaline Phosphatase 78 U/L Total Protein 7.1 GM/DL Albumin 2.4 GM/DL Thyroid Stimulating Hormone 6.780 uIU/ML 3rd Gen Iron Level 24 MCG/DL Total Iron Binding Capacity 218 MCG/DL Percent Iron Saturation 11.0 % Ferritin 17 NG/ML Microbiology Date/Time Procedure Status Source Growth 11/30/16 18:35 Aerobic Blood Culture - Preliminary Resulted Blood Peripheral NO GROWTH IN 2 DAYS 11/30/16 18:35 Anaerobic Blood Culture - Preliminary Resulted Blood Peripheral NO GROWTH IN 2 DAYS 11/30/16 18:40 Aerobic Blood Culture - Preliminary Resulted Blood Peripheral NO GROWTH IN 2 DAYS 11/30/16 18:40 Anaerobic Blood Culture - Preliminary Resulted Blood Peripheral NO GROWTH IN 2 DAYS 11/30/16 19:05 Gram Stain - Final Resulted Wound Buttock 11/30/16 19:05 Wound Culture - Preliminary Resulted Group A Beta Strep Proteus Mirabilis 12/01/16 13:21 Urine Culture - Final Complete Urine Clean Catch <10,000 CFU/ML MIXED KATIE... PHYSICAL EXAMINATION GENERAL: No acute distress. She is awake, alert and oriented. HEENT: No icterus. Oropharynx no visible lesions. Moist mucosa. NECK: Supple. No adenopathy. LUNGS: Clear breath sounds HEART: Regular S1-S2. No murmurs. No rubs. No gallops. Buttock: Decreased erythema of the entire skin of the buttock. There is an ulceration on the right buttock which now has dressing in place. EXTREMITIES: No clubbing or cyanosis. Trace edema. NEUROLOGIC: Decreased mobility of the left upper extremity. PSYCHIATRIC: The patient is calm and cooperative. IMPRESSION Stage III decubitus ulceration of the right buttock infected with group A strep and proteus. RECOMMENDATION Change cefazolin to PO Keflex x [address] Tamez. I will sign off now. Yoni Piña MD Dec 02, 2016 16:31
[2016-12-03] VITALS: BP 113/64; PULSE 78; RESP 20; TEMP 97.3; O2SAT 99
[2016-12-03 04:00] VITALS: BP 102/64; PULSE 68; RESP 20; TEMP 97.4; O2SAT 97
[2016-12-03] MEDS: HEPARIN SODIUM - SQ 10,000 UNITS/ML VIAL SQ SCH ×2 (05:00→12:19)
[2016-12-03] MEDS: LEVOTHYROXINE SODIUM 75 MCG TAB PO SCH (06:04)
[2016-12-03 06:45] VITALS: PULSE 72
[2016-12-03 08:00] VITALS: BP 107/62; PULSE 76; RESP 18; TEMP 97.1; O2SAT 96
--- NOTE | 2016-12-03 08:49 | HHI.FF ---
Face to Face Verification Diagnosis: (1) Cellulitis of right buttock (2) Decubitus ulcer of right buttock, stage 2 (3) Cerebral Palsey : Sfpastic Athetoid of the L side (4) Anemia (5) Generalized weakness Physical Therapy Order: Evaluate and Treat Occupational Therapy Order: Evaluate and Treat Home Health Nursing Order: Medical education Wound care and dressing changes Instructions: home health nurse for medication management Home Health Aide Order: To Assist In: Bathing and personal care Developer Automatic Order: To Evaluate: Living conditions/environment, Support services Order: To Provide: Long range planning I have seen patient Nika Bazan on 12/03/16. My clinical findings support the need for the requested home health care services because: Ltd mobility - disease progression Deconditioned w/ increased weakness I certify that my clinical findings support that this patient is homebound because: Unsafe to leave home unassisted [id number] bed/chair Herbie Tamez MD Dec 03, 2016 08:49
[2016-12-03] MEDS ORDERED: CEPH500C PO (08:57)
[2016-12-03] MEDS ORDERED: FERR324T4 PO (08:57)
[2016-12-03] MEDS ORDERED: NYSTPOW TOPICAL (08:57)
[2016-12-03] MEDS ORDERED: DOCU100C PO (08:57)
[2016-12-03] MEDS: DOCUSATE SODIUM 100 MG CAP PO SCH (09:00)
[2016-12-03] MEDS: NYSTATIN 100,000 UNIT/GM CREAM 15 GM TOPICAL SCH (09:00)
[2016-12-03] MEDS: PANTOPRAZOLE SOD 20 MG DELAYED RELEASE TAB PO SCH (09:00)
[2016-12-03] MEDS: DOCUSATE SODIUM 50 MG/SENNA 8.6 MG TAB PO SCH (09:00)
[2016-12-03] MEDS: SODIUM CHLORIDE 0.9% FLUSH 10 ML FLUSH IV FLUSH SCH (09:00)
--- NOTE | 2016-12-03 11:49 | HHI.PR ---
Subjective Remarks Patient feeling much better. Denies any chest pain or shortness of breath. Reports pain is controlled. Objective Vital Signs Date Time Temp Pulse Resp B/P Pulse Ox O2 Delivery O2 Flow Rate FiO2 12/03/16 08:00 97.1 76 18 107/62 96 12/03/16 04:00 97.4 68 20 102/64 97 12/03/16 00:00 97.3 78 20 113/64 99 12/02/16 20:00 96.2 84 20 103/75 98 12/02/16 16:00 97.4 86 18 135/75 97 12/02/16 14:35 18 12/02/16 12:00 97.8 79 20 95/68 97 I/O 12/02/16 12/02/16 12/02/16 12/03/16 12/03/16 12/03/16 07:00 15:00 23:00 07:00 15:00 23:00 Intake Total 220 ml 300 ml 240 ml 235 ml Output Total 300 ml 1000 ml Balance -80 ml 300 ml 240 ml -765 ml Intake Oral 120 ml 300 ml 240 ml 120 ml IV Total 100 ml 115 ml Output Urine Total 300 ml 1000 ml # Voids 1 1 3 # Bowel Movements 0 0 0 Result Diagram: 12/02/16 0800 12/02/16 0800 Objective Remarks GENERAL: Patient sitting up in bed. Appears comfortable. Alert and oriented 3. Mood improved today. SKIN: Warm and dry. 12/02 Bilateral buttocks with erythema much improved. Right buttock ulcer with with improvement in surrounding erythema. HEAD: Normocephalic. EYES: No scleral icterus. No injection or drainage. NECK: Supple, trachea midline. No JVD. CARDIOVASCULAR: Regular rate and rhythm without murmurs, gallops, or rubs. RESPIRATORY: Breath sounds equal bilaterally. No accessory muscle use. GASTROINTESTINAL: Abdomen soft, non-tender, nondistended. positive Bowel sounds. MUSCULOSKELETAL: No cyanosis, or edema. BACK: Nontender without obvious deformity. No CVA tenderness. A/P Assessment and Plan =====12/03/16======== //Discharge results are improving. Continue course of Keflex as per infectious disease -Discussed with case management again. She would benefit from SNF while recovering from decubitus ulcer /Stage II decubitus ulcer right buttock, with surrounding erythema. //Possible sepsis on admission. Tachycardia, tachypnea. No white count. Subjective chills at home. Affected decubitus ulcer right buttock -No urinary symptoms. No respiratory symptoms. -Wound culture with group A strep and gram-negative rods. Speciation pending 12/01 Start cefazolin. Discussed with infectious disease. Await culture. Wound care nursing consult. -12/03. Start on Keflex 14 days. -Physical therapy following. Appreciate assistance. //Hypothyroidism. Chronic. TSH 6. This is in the acute setting. Continue home Synthroid. We'll need to follow-up with primary care to check this as an outpatient. //Chronic pain. Avoid home nsaid. continue acetaminophen. //Protein calorie malnutrition. enlive 3 times a day. //Anemia. Chronic.. Continue home iron with stool softener. //Chronic constipation. Last BM 12/01. She reports weekly BMs. //Prophylaxis. SCDs, and subcutaneous Heparin. Discharge Planning Discussed with case packer and sealer. Unable to do daily dressing changes at home. Discharge to SNF. Need to continue Keflex by mouth 14 days. Herbie Tamez MD Dec 03, 2016 11:49
--- NOTE | 2016-12-03 11:54 | HHI.DS ---
Discharge Summary Admission Date Dec 01, 2016 at 13:38 Discharge Date: Dec 03, 2016 Admitting Diagnosis CELLULITIS OF BUTTOCK (1) Decubitus ulcer of right buttock, stage 2 ICD Code: L89.312 (2) Cerebral Palsey : Sfpastic Athetoid of the L side Procedures Wound culture. No invasive procedures. 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 She also reports 2 day history of subjective chills. Denies any chest pain, shortness of breath. Denies any cough, sore throat, dysuria. Patient reports that she has 3 wheelchairs at home, however the other 2 have not worked recently, and she is stuck in a wheelchair which does not recline. Since this began 6 weeks ago, her bilateral buttock pain started. She is seeing her primary care doctor, has started Desitin cream, without improvement. CBC/BMP: 12/02/16 0800 12/02/16 0800 Significant Findings Laboratory Tests Test 11/30/16 12/01/16 12/01/16 12/01/16 18:40 05:50 13:21 20:57 Chloride Level 109 MEQ/L 111 MEQ/L (98-107) (98-107) Creatinine 0.44 MG/DL 0.39 MG/DL (0.50-1.00) (0.50-1.00) Random Glucose 111 MG/DL 73 MG/DL (74-106) (74-106) Calcium Level 8.2 MG/DL 7.9 MG/DL (8.5-10.1) (8.5-10.1) Aspartate Amino Transf 10 U/L (15-37) (AST/SGOT) Albumin 2.4 GM/DL (3.4-5.0) Thyroid Stimulating Hormone 6.780 uIU/ML 3rd Gen (0.358-3.740) Hemoglobin 10.1 GM/DL 9.1 GM/DL (11.6-15.3) (11.6-15.3) Hematocrit 31.4 % 29.5 % (35.0-46.0) (35.0-46.0) Mean Corpuscular Volume 68.5 FL 70.5 FL (80.0-100.0) (80.0-100.0) Mean Corpuscular Hemoglobin 22.0 PG 21.8 PG (27.0-34.0) (27.0-34.0) Platelet Count 460 TH/MM3 (150-450) Neutrophils (%) (Auto) 74.9 % (16.0-70.0) Neutrophils # (Auto) 8.1 TH/MM3 (1.8-7.7) Platelet Estimate HIGH (NORMAL) Mean Corpuscular Hemoglobin 30.9 % Concent (32.0-36.0) Eosinophils (%) (Auto) 4.9 % (0.0-4.0) Ovalocytes 1+ (NORMAL) Urine Occult Blood TRACE (NEG) Urine Nitrite POS (NEG) Urine Leukocyte Esterase LARGE (NEG) Urine WBC 6-8 /hpf (0-5) Urine WBC Clumps OCC (NONE) Urine Squamous Epithelial 6-8 /hpf (0-5) Cells Urine Bacteria FEW /hpf (NONE) Iron Level 24 MCG/DL (50-170) Total Iron Binding Capacity 218 MCG/DL (250-450) Percent Iron Saturation 11.0 % (20-50) Test 12/02/16 08:00 Hemoglobin 9.8 GM/DL (11.6-15.3) Hematocrit 30.4 % (35.0-46.0) Mean Corpuscular Volume 70.2 FL (80.0-100.0) Mean Corpuscular Hemoglobin 22.5 PG (27.0-34.0) Eosinophils (%) (Auto) 5.1 % (0.0-4.0) Eosinophils # (Auto) 0.5 TH/MM3 (0-0.4) Ovalocytes 1+ (NORMAL) Keratocytes OCC (NORMAL) Chloride Level 108 MEQ/L (98-107) Creatinine 0.41 MG/DL (0.50-1.00) Calcium Level 7.7 MG/DL (8.5-10.1) Hospital Course Patient was treated with broad-spectrum IV antibiotics. Wound culture grew out group A strep, as well as Proteus mirabilis. Wound care was consulted during admission, and has made recommendations for wound dressing. Erythema and pain improved with treatment. Patient also has Nandini intertrigo which improved with nystatin. Infectious disease recommends Keflex by mouth to complete course of treatment. Patient lives at home with a friend, however friend unable to do dressing changes every day. We'll discharge to SNF. For problem-based summary for most recent progress note, please see below. =====12/03/16======== //Discharge results are improving. Continue course of Keflex as per infectious disease -Discussed with case management again. She would benefit from SNF while recovering from decubitus ulcer /Stage II decubitus ulcer right buttock, with surrounding erythema. //Possible sepsis on admission. Tachycardia, tachypnea. No white count. Subjective chills at home. Affected decubitus ulcer right buttock -No urinary symptoms. No respiratory symptoms. -Wound culture with group A strep and gram-negative rods. Speciation pending 12/01 Start cefazolin. Discussed with infectious disease. Await culture. Wound care nursing consult. -12/03. Start on Keflex 14 days. -Physical therapy following. Appreciate assistance. //Hypothyroidism. Chronic. TSH 6. This is in the acute setting. Continue home Synthroid. We'll need to follow-up with primary care to check this as an outpatient. //Chronic pain. Avoid home nsaid. continue acetaminophen. //Protein calorie malnutrition. enlive 3 times a day. //Anemia. Chronic.. Continue home iron with stool softener. //Chronic constipation. Last BM 12/01. She reports weekly BMs. //Prophylaxis. SCDs, and subcutaneous Heparin. Pt Condition on Discharge: Good Discharge Disposition: Discharge to SNF Discharge Time: > 30 minutes Discharge Instructions DIET: Follow Instructions for: As Tolerated, No Restrictions Activities you can perform: Regular-No Restrictions Follow up Referrals: PCP Follow-up - 1 Week with Beatriz Mariee MD New Medications: Cephalexin (Cephalexin) 500 Mg Cap 500 MG PO Q6H Infection #56 Ref 0 CAP Docusate Sodium (Docusate Sodium) 100 Mg Cap 100 MG PO BID Prevent Constipation #60 Ref [address] (Ferrous Sulfate DR) 324 Mg Tabdr 324 MG PO BID Nutritional Supplement #30 Ref 0 TAB Hospital Bed - Electric ([facility] Bed - Electric) 1 Ea Ea 1 EA .ROUTE DIRECTED #1 EA Nystatin Topical (Nystatin Topical) 1 Powd 1 APPL TOPICAL BID apply to buttock, crura. do not apply to decubitous ulcer. do not apply near open skin prevent rash #1 CONTAINER Continued Medications: Celecoxib (Celebrex) 200 Mg Cap 200 MG PO BID PRN PAIN SCALE 1 TO 10 Ref 0 CAP Levothyroxine (Synthroid) 75 Mcg Tab 75 MCG PO DAILY Thyroid #30 Ref 0 TAB Discontinued Medications: Ferrous Sulfate (Iron) 90 Mg Tab 130 MG PO DAILY Herbie Tamez MD Dec 03, 2016 11:54
[2016-12-03 12:00] VITALS: BP 104/62; PULSE 80; RESP 18; TEMP 98.4; O2SAT 97
[2016-12-03] MEDS: CEPHALEXIN MONOHYDRATE 500 MG CAP PO SCH ×2 (12:19→17:31)
[2016-12-03] MEDS: ACETAMINOPHEN 325 MG TAB PO PRN (14:08)
[2016-12-03] MEDS ORDERED: CIPR500T2 PO (14:25)
[2016-12-03 16:00] VITALS: BP 105/66; PULSE 97; RESP 18; TEMP 98.3; O2SAT 96
--- NOTE | 2016-12-04 12:25 | PQ ---
Physician Query Response Document PATIENT: FRANTZ SOARES : 1960 ADMIT DATE: 12/01/2016 1:38 PM DISCH DATE: 12/03/2016 5:51 PM RESPONDING PROVIDER #: [email or web address] QUERY TEXT: Rule Out Sepsis Clarification Possible Sepsis is documented in the Medical Record. Please clarify whether: -- Patient has sepsis - Please document confirmed, suspected or probable causative organism - Please document confirmed, suspected or probable localized infection - Please clarify if sepsis is related to a device - Please clarify if sepsis was present on admission -- Sepsis was ruled out (include corresponding diagnosis for patient?s clinical picture and treatment ) -- Patient had sepsis which is resolved -- Other, please specify The patient's Clinical Indicators include: Docuentation in H " //Possible sepsis on admission. Tachycardia, tachypnea. No white count. Subjective chills at estella e. Affected decubitus ulcer right buttock -No urinary symptoms. No respiratory symptoms." If you have any additional questions/comments/concerns please do not hesitate to reach out to the [employer] /Coding Hotline at extension *[phone] Query created by: Cassidy Carver on 12/04/2016 11:22 AM RESPONSE TEXT: Confirmed sepsis on admission. Tachycardia, tachypnea. Wound culture right decub ulcer with group a s trep, proteus. Improved with antibiotics. Electronically signed by: Herbie Tamez MD 12/04/2016 12:21 PM
== END 2016-12-03 17:51 | DRG 871 ==
LOC: PHED 17:43 → PHEDA 20:09 → PH3B 21:35 → OBSVTOIN 12-01 13:38
PROVIDERS: ADMIT Internal Medicine; ATTEND Internal Medicine
DX: A41.9 Sepsis, unspecified organism (principal); L89.313 Pressure ulcer of right buttock, stage 3; E46 Unspecified protein-calorie malnutrition; L03.317 Cellulitis of buttock; E03.9 Hypothyroidism, unspecified; D64.9 Anemia, unspecified; B37.2 Candidiasis of skin and nail; G80.8 Other cerebral palsy; Z99.3 Dependence on wheelchair; G89.29 Other chronic pain; K59.00 Constipation, unspecified; B96.4 Proteus (mirabilis) (morganii) as the cause of diseases classified elsewhere; B95.0 Streptococcus, group A, as the cause of diseases classified elsewhere
CPT/HCPCS: 80048; 80053; 81001; 82728; 82948; 83540; 83550; 83605; 84443; 85025; 85610; 85730; 86403; 87040; 87070; 87077; 87086; 87186; 87205; 96365; 96367; 96376; G0378; G8987-GO; G8987-GP; G8988-GO; G8988-GP; J0690; J1644; J2543; J3370; J7030; J7050

== ENCOUNTER 2017-02-13 14:20 | Emergency (ER) | payer MEDICARE, MEDICAID ==
[~2017-02-13] VITALS: Ht 152.4 cm; Wt 80.0 kg
[~2017-02-13 14:20] MED LIST changes: +CEPH500C PO; +CIPR500T2 PO; +DOCU100C PO; -FERR1TAB58 PO; +FERR324T4 PO; +HOSP BED1; +LEVO.075 PO; -Levothyroxine Sodium PO; -MACR100C2 PO; +NYSTPOW TOPICAL
[2017-02-13 14:38] VITALS: BP 133/73; PULSE 87; RESP 20; TEMP 98.1; O2SAT 100
[2017-02-13] MEDS ORDERED: CLINDAMYCIN INJ 600 MG in SODIUM CHLORIDE 0.9% INJ 100 ML IV ONE (14:45)
[2017-02-13] MEDS ORDERED: TETANUS/DIPHTHERIA TOXOID ADULT 0.5 ML VIAL IM ONE (14:45)
--- NOTE | 2017-02-13 14:47 | PD ---
HPI Chief Complaint: Skin Problem Time Seen by Provider: 14:47 Travel History International Travel<30 days: No Contact w/Intl Traveler<30days: No Traveled to known affect area: No History of Present Illness HPI Patient comes emergency Department for concerns over wounds to her bilateral upper thighs/buttocks that she first noticed yesterday. Patient states that her wheelchair does not have the right size cushion in her legs and rubbing up against a metal causing the irritation. Patient denies any fevers. Describes pain on the right is irritation-like sensation without radiation. Denies anything making it better. Patient denies doing anything for this other than showering. Patient states different location than her previous ulcer that she was admitted to the hospital. Patient states she's had home health nurse last visit approximately 2 weeks. Denies any nausea, vomiting, chest pain, shortness of breath, or headaches. PFSH Past Medical History Anemia: Yes Arthritis: Yes Cancer: No Cardiovascular Problems: No Cerebral Palsy: Yes Cerebrovascular Accident: No Diabetes: No Diminished Hearing: No Endocrine: No Gastrointestinal Disorders: No GERD: Yes Genitourinary: No Immune Disorder: No Implanted Vascular Access Dvce: No Musculoskeletal: Yes (LEFT SIDE WEAKNESS) Neurologic: Yes (CP) Psychiatric: No Reproductive: No Respiratory: No Immunizations Current: Yes Migraines: Yes Seizures: Yes (As child) Thyroid Disease: Yes (Hypo-) Tetanus Vaccination: > 5 Years Menopausal: Yes : 1 Para: 1 Past Surgical History Abdominal Surgery: Yes (CHOLECYSTECTOMY) Section: Yes Cholecystectomy: Yes Eye Surgery: Yes (Bilateral for "crossed eyes" ) Gynecologic Surgery: Yes (C SECTION) Tonsillectomy: Yes Other Surgery: Yes Social History Alcohol Use: Yes (Occ.) Tobacco Use: No Substance Use: No Allergies-Medications (Allergen,Severity, Reaction): Coded Allergies: diazepam (Unverified Adverse Reaction, Severe, Seizures , 02/13/17) Reported Meds & Prescriptions Reported Meds & Active Scripts Active Keflex (Cephalexin) 500 Mg Cap 500 Mg PO Q8H Ferrous Sulfate DR (Ferrous Sulfate) 324 Mg Tabdr 324 Mg PO BID Hospital Bed - Electric 1 Ea Ea 1 Ea .ROUTE DIRECTED Reported Celebrex (Celecoxib) 200 Mg Cap 200 Mg PO BID PRN Synthroid (Levothyroxine Sodium) 75 Mcg Tab 100 Mcg PO DAILY Review of Systems Except as stated in HPI: all other systems reviewed are Neg Physical Exam Narrative GENERAL: Well-developed, overly nourished, in no acute distress, and non-ill appearing. SKIN: Stage I decubitus ulcers noted bilateral upper thigh and lower buttocks. There is no crepitus or drainage. There is tenderness reported to the right. There is some minimal appearing necrotic tissue. HEAD: Atraumatic. Normocephalic. EYES: Pupils equal and round. EOMI. No scleral icterus. No injection or drainage. ENT: No nasal bleeding or discharge. Mucous membranes pink and moist. NECK: Trachea midline. Supple. No nuclear rigidity. CARDIOVASCULAR: Regular rate and rhythm. No murmur appreciated. RESPIRATORY: No accessory muscle use. No respiratory distress. Clear to auscultation. Breath sounds equal bilaterally. MUSCULOSKELETAL: No clubbing. No cyanosis. 1+ edema right lower extremity the patient reports is chronic. NEUROLOGICAL: Awake and alert. No obvious cranial nerve deficits. Motor grossly within normal limits. Normal speech. PSYCHIATRIC: Appropriate mood and affect; insight and judgment normal. Data Data Last Documented VS Vital Signs Date Time Temp Pulse Resp B/P Pulse Ox O2 Delivery O2 Flow Rate FiO2 02/13/17 17:54 70 16 130/70 99 02/13/17 14:38 98.1 Orders Basic Metabolic Panel (Bmp) (02/13/17 14:45) Complete Blood Count With Diff (02/13/17 14:45) Wound Culture And Gram Stain (02/13/17 14:45) Iv Access Insert/Monitor (02/13/17 14:45) Wound Care (02/13/17 14:45) Cefazolin Inj (Ancef Inj) (02/13/17 14:45) Clindamycin Inj (Cleocin Inj) (02/13/17 14:45) Tetanus/Diphtheria Tox Adult (Tetanus/Di (02/13/17 14:45) Cephalexin (Keflex) (02/13/17 15:15) Sulfamet-Trimeth Ds 800-160 Mg (Bactrim (02/13/17 15:15) Case Management Consult (02/13/17 ) Labs Laboratory Tests Test 02/13/17 15:00 White Blood Count 10.3 TH/MM3 Red Blood Count 5.25 MIL/MM3 Hemoglobin 12.1 GM/DL Hematocrit 38.1 % Mean Corpuscular Volume 72.4 FL Mean Corpuscular Hemoglobin 23.1 PG Mean Corpuscular Hemoglobin 31.8 % Concent Red Cell Distribution Width 19.9 % Platelet Count 358 TH/MM3 Mean Platelet Volume 8.9 FL Neutrophils (%) (Auto) 73.6 % Lymphocytes (%) (Auto) 15.6 % Monocytes (%) (Auto) 5.7 % Eosinophils (%) (Auto) 4.5 % Basophils (%) (Auto) 0.6 % Neutrophils # (Auto) 7.6 TH/MM3 Lymphocytes # (Auto) 1.6 TH/MM3 Monocytes # (Auto) 0.6 TH/MM3 Eosinophils # (Auto) 0.5 TH/MM3 Basophils # (Auto) 0.1 TH/MM3 CBC Comment DIFF FINAL Differential Comment Sodium Level 141 MEQ/L Potassium Level 3.5 MEQ/L Chloride Level 107 MEQ/L Carbon Dioxide Level 26.3 MEQ/L Anion Gap 8 MEQ/L Blood Urea Nitrogen 16 MG/DL Creatinine 0.40 MG/DL Estimat Glomerular Filtration 164 ML/MIN Rate Random Glucose 84 MG/DL Calcium Level 8.9 MG/DL MDM Medical Decision Making Medical Screen Exam Complete: Yes Emergency Medical Condition: Yes Differential Diagnosis Abscess, sepsis, wound infection, decubitus ulcer, other Narrative Course Patient in no obvious distress upon re-evaluation. All pertinent laboratory result(s) discussed with patient. Discussed patient with Dr. Zamora prior to discharge, who saw and evaluate the patient and is in agreement with plan of care and disposition. Any questions/concerns in reference to patient diagnosis/ condition discussed and clarified prior to patient's discharge. Reinforced sheer importance of close follow up with patient's primary physician or primary care clinic, wound care, return to emergency department 2 days for recheck. Instructed patient to return to ED immediately, if symptoms return/worsen. Pt showed understanding of above instructions. Further instructions and recommendations were detailed in discharge paperwork. Pt left without difficulty out of ED at discharge. Diagnosis Primary Impression: Decubitus ulcer Qualified Code: L89.301 - Decubitus ulcer of buttock, stage 1, unspecified laterality Referrals: [facility] Advanced Wound Healing Patient Instructions: General Instructions, How to Prevent Pressure Ulcers (ED) , Pressure Ulcer (DC) Additional Instructions: Follow-up with your primary care physician, wound care, or home health care on Wednesday. If unable to be seen by any of these return to the emergency department for wound recheck and dressing change. Take all medication as prescribed. Return to the emergency department if symptoms get worse. Med/Other Pt SpecificInfo: Prescription(s) given Scripts Cephalexin (Keflex)500 Mg Abq106 Mg PO Q8H #30 CAP Ref 0 Prov:Anjelica Zamora DO 02/13/17 Disposition: 01 DISCHARGE HOME Condition: Stable Cesar Archibald Feb 13, 2017 14:47
[2017-02-13] MEDS ORDERED: SULFAMETHOXAZOLE-TRIMETHOPRIM DS 800-160 MG TAB PO ONE (15:15)
[2017-02-13] MEDS ORDERED: CEPHALEXIN MONOHYDRATE 500 MG CAP PO ONE (15:15)
[2017-02-13 15:46] LABS: AUTOMATED NEUTROPHIL # 7.6 TH/MM3 (1.8-7.7); BASOPHIL # 0.1 TH/MM3 (0-0.2); BASOPHIL % 0.6 % (0.0-2.0); EOSINOPHIL # 0.5 TH/MM3 (0-0.4); EOSINOPHIL % 4.5 % (0.0-4.0); HEMATOCRIT 38.1 % (35.0-46.0); HEMO FLAGS DIFF FINAL; LYMPH % 15.6 % (9.0-44.0); LYMPHOCYTE # 1.6 TH/MM3 (1.0-4.8); MEAN CELL VOLUME 72.4 FL (80.0-100.0); MEAN CORPUSCULAR HEMOGLOBIN 23.1 PG (27.0-34.0); MEAN CORPUSCULAR HGB CONC 31.8 % (32.0-36.0); MONO % 5.7 % (0.0-8.0); NEUT % 73.6 % (16.0-70.0); PLATELET COUNT 358 TH/MM3 (150-450); RED BLOOD COUNT 5.25 MIL/MM3 (4.00-5.30); RED CELL DISTRIBUTION WIDTH 19.9 % (11.6-17.2); WHITE BLOOD COUNT 10.3 TH/MM3 (4.0-11.0)
[2017-02-13 15:58] LABS: BICARBONATE 26.3 MEQ/L (21.0-32.0); POTASSIUM 3.5 MEQ/L (3.5-5.1)
[2017-02-13] MEDS ORDERED: CEPH-460 PO (17:42)
[2017-02-13 17:54] VITALS: BP 130/70; PULSE 70; RESP 16; O2SAT 99
--- NOTE | 2017-02-13 19:06 | HHI.FF ---
Face to Face Verification Diagnosis: (1) Decubitus ulcer of right buttock, stage 2 Home Health Nursing Order: Wound care and dressing changes I have seen patient Nika Bazan on 02/13/17. My clinical findings support the need for the requested home health care services because: Limited ability to care for self I certify that my clinical findings support that this patient is homebound because: [id number] bed/chair Pt is wheelchair bound and require wound care. Anjelica Zamora DO Feb 13, 2017 19:06
== END 2017-02-13 20:47 | disposition home or self-care (01) ==
LOC: NEPE 14:20
DX: L89.301 Pressure ulcer of unspecified buttock, stage 1 (principal); G80.9 Cerebral palsy, unspecified; B95.61 Methicillin susceptible Staphylococcus aureus infection as the cause of diseases classified elsewhere; B96.5 Pseudomonas (aeruginosa) (mallei) (pseudomallei) as the cause of diseases classified elsewhere; Z23 Encounter for immunization; Z99.3 Dependence on wheelchair
CPT/HCPCS: 80048; 85025; 86403; 87070; 87077; 87185; 87186; 87205; 90471; 90714

== ENCOUNTER 2017-02-19 16:33 | Emergency (ER) | payer MEDICARE, MEDICAID ==
[~2017-02-19] VITALS: Ht 152.4 cm; Wt 80.0 kg
[~2017-02-19 16:33] MED LIST changes: +CEPH-460 PO; -CEPH500C PO; -CIPR500T2 PO; -DOCU100C PO; -NYSTPOW TOPICAL
[2017-02-19 17:03] VITALS: BP 121/62; PULSE 101; RESP 22; TEMP 98.9; O2SAT 96
[2017-02-19 17:06] VITALS: BP 121/62; PULSE 101; RESP 22; TEMP 98.9; O2SAT 96
--- NOTE | 2017-02-19 17:37 | PD ---
HPI Chief Complaint: Skin Problem Time Seen by Provider: 17:06 Travel History International Travel<30 days: No Contact w/Intl Traveler<30days: No Traveled to known affect area: No History of Present Illness HPI The patient was seen and examined in the presence of the nurse. This patient comes for evaluation of her known decubitus wounds on the back of both thighs. She has prolonged time sitting in a wheelchair without changing position. She has a home health care nurse that evaluated her and told her to come here for evaluation. She was seen here 5 days ago for the same thing. She was started on Keflex and wound culture was done which is growing MSSA and pseudomonas is sensitive to Levaquin but not the Keflex she is taking. Symptoms severity is moderate. No alleviating factors. She has baseline cerebral palsy and has limited mobility. She says that her primary physician is working on getting her into [facility] rehabilitation. PFSH Past Medical History Anemia: Yes Arthritis: Yes Cancer: No Cardiovascular Problems: No Cerebral Palsy: Yes Cerebrovascular Accident: No Diabetes: No Diminished Hearing: No Endocrine: No Gastrointestinal Disorders: No GERD: Yes Genitourinary: No Immune Disorder: No Implanted Vascular Access Dvce: No Musculoskeletal: Yes (LEFT SIDE WEAKNESS) Neurologic: Yes (CP) Psychiatric: No Reproductive: No Respiratory: No Immunizations Current: Yes Migraines: Yes Seizures: Yes (As child) Thyroid Disease: Yes (Hypo-) Menopausal: Yes : 1 Para: 1 Past Surgical History Abdominal Surgery: Yes (CHOLECYSTECTOMY) Section: Yes Cholecystectomy: Yes Eye Surgery: Yes (Bilateral for "crossed eyes" ) Gynecologic Surgery: Yes (C SECTION) Tonsillectomy: Yes Other Surgery: Yes Social History Alcohol Use: Yes (Occ) Tobacco Use: No Substance Use: No Allergies-Medications (Allergen,Severity, Reaction): Coded Allergies: diazepam (Unverified Adverse Reaction, Severe, Seizures , 02/19/17) Reported Meds & Prescriptions Reported Meds & Active Scripts Active Keflex (Cephalexin) 500 Mg Cap 500 Mg PO Q8H Ferrous Sulfate DR (Ferrous Sulfate) 324 Mg Tabdr 324 Mg PO BID Hospital Bed - Electric 1 Ea Ea 1 Ea .ROUTE DIRECTED Reported Celebrex (Celecoxib) 200 Mg Cap 200 Mg PO BID PRN Synthroid (Levothyroxine Sodium) 75 Mcg Tab 100 Mcg PO DAILY Review of Systems General / Constitutional: No: Fever Eyes: No: Visual changes HENT: No: Headaches Cardiovascular: No: Chest Pain or Discomfort Respiratory: No: Shortness of Breath Gastrointestinal: No: Abdominal Pain Genitourinary: No: Dysuria Musculoskeletal: Positive: Weakness, No: Pain Skin: No Rash Neurologic: Positive: Weakness, Ataxia Psychiatric: No: Depression Endocrine: No: Polydipsia Hematologic/Lymphatic: No: Easy Bruising Physical Exam Narrative GENERAL: Well-nourished, well-developed patient in no apparent distress. SKIN: Focused skin assessment reveals no rash and nodules. Skin is Warm and dry. HEAD: Atraumatic. Normocephalic. EYES: Pupils equal and round. No scleral icterus. No injection or drainage. ENT: No nasal bleeding or discharge. Mucous membranes pink and moist. NECK: Trachea midline. No JVD. CARDIOVASCULAR: Regular rate and rhythm. No murmur appreciated. RESPIRATORY: No accessory muscle use. Clear to auscultation. Breath sounds equal bilaterally. GASTROINTESTINAL: Abdomen soft, non-tender, nondistended. Hepatic and splenic margins not palpable. MUSCULOSKELETAL: Has some contractures of the hands and feet. No clubbing. No cyanosis. No edema. Examination the back reveals there is no sacral or lumbar decub. She does have decubitus on bilateral posterior thighs. These are second -degree decubitus. Macular erythema around them but no active drainage. NEUROLOGICAL: Awake and alert. No obvious cranial nerve deficits. Motor grossly within normal limits. Normal speech. PSYCHIATRIC: Appropriate mood and affect; insight and judgment normal. Data Data Last Documented VS Vital Signs Date Time Temp Pulse Resp B/P (MAP) Pulse Ox O2 Delivery O2 Flow Rate FiO2 02/19/17 17:06 98.9 101 22 121/62 (81) 96 Room Air Orders Orders Levofloxacin (Levaquin) (02/19/17 18:30) Case Management Consult (02/19/17 ) [facility] Medical Decision Making Medical Screen Exam Complete: Yes Emergency Medical Condition: Yes Medical Record Reviewed: Yes Differential Diagnosis Infected decubitus, cerebral palsy, generalized weakness Narrative Course I have reviewed the patient's electronic medical record. I reviewed her visit from 5 days ago. Culture shows MSSA and pseudomonas as noted Patient should continue her Keflex and I will add 10 days of Levaquin to cover the pseudomonas Patient does not have fever and has a normal blood pressure. He does not look septic or toxic I'm informed by the charge nurse that behavioral health case manager abdomen working to get this patient a correction bed. If one is available I feel it would be appropriate to send her there. I gave her first dose of Levaquin here It turns out they do have a correction bed for so we are sending her there Diagnosis Primary Impression: Cerebral Palsey : Sfpastic Athetoid of the L side Additional Impression: Decubitus ulcer, stage 2 with infection Additional Instructions: Follow-up with correction MHenry add 10 days of Levaquin to your Keflex Change position frequently Med/Other Pt SpecificInfo: Other Disposition: 03 DISCHARGE TO SNF Condition: Stable Kaiden Cueto MD Feb 19, 2017 17:37
[2017-02-19] MEDS ORDERED: LEVOFLOXACIN 750 MG TAB PO ONE (18:30)
[2017-02-19 21:30] VITALS: BP 112/58; PULSE 82; RESP 16; TEMP 97.5; O2SAT 100
== END 2017-02-19 21:44 ==
LOC: NEPC 16:33
DX: G80.3 Athetoid cerebral palsy (principal); L89.892 Pressure ulcer of other site, stage 2; B95.61 Methicillin susceptible Staphylococcus aureus infection as the cause of diseases classified elsewhere; B96.5 Pseudomonas (aeruginosa) (mallei) (pseudomallei) as the cause of diseases classified elsewhere
CPT/HCPCS: 99283